=== PATIENT | male | born 1950 ===

== ENCOUNTER 2024-11-28 10:12 | Inpatient (IN) | payer MEDICARE, SELFPAY ==
--- NOTE | 2024-11-15 15:31 | CM ---
Demographics: confirmed
Living situation: lives independently with
Support Person Post Operatively:
History of
VN: Yes, not currently on service
SNF: [facility]
Outpatient: needs appointment
Has patient purchased required equipment: yes
PCP: Manan
Pharmacy: [facility]
Post Operative Discharge Plan: Patient is requesting discharge same day. CM advised patient to discuss with Ortho PA. CM updated ortho PA with patient's wishes.
[2024-11-19 11:12] LABS: Hematocrit 49.4 % (39.0-52.0); Hemoglobin 17.1 g/dL (13.0-18.0); Mean Corp Hgb Conc. 34.6 g/dL (33.0-37.0); Mean Corpuscular Volume 93.7 fL (80.0-94.0); Platelet Count 368 10^3/uL (130-400); Red Cell Dist. Width 12.1 % (11.5-14.5)
[2024-11-19 11:32] LABS: C-Reactive Protein < 5.00 mg/L (0.0-10.00)
[2024-11-19 11:33] LABS: ALT (SGPT) 26 U/L (0-50); AST (SGOT) 22 U/L (17-59); Albumin 4.7 g/dl (3.5-5.0); Alkaline Phosphatase 68 U/L (38-126); Blood Urea Nitrogen 16 mg/dl (9-20); Calcium 11.1 mg/dl (8.4-10.2); Carbon Dioxide 25 mmol/L (22-30); Chloride 103 mmol/L (98-107); Glucose 106 mg/dl (70-99); Potassium 4.4 mmol/L (3.5-5.1); Sodium 139 mmol/L (135-145); Total Protein 7.7 g/dl (6.3-8.2); eGFR > 60.00
[2024-11-19 13:57] LABS: Glycohemoglobin (HgbA1c) 6.1 % (4.0-5.6)
[2024-11-19 14:06] VITALS: BMI 35.7
[2024-11-19 16:43] VITALS: BMI 35.7
[2024-11-28] VITALS (10 sets, daily range): BP systolic 88–141; BP diastolic 62–84; BMI 35.7
[2024-11-28 10:49] LABS: Glucose - Point of Care 106 mg/dl (70-99)
[2024-11-28] MEDS: NORMOSOL-R/PLASMALYTE-A 1000 IV ×2 (11:05→16:22)
[2024-11-28] MEDS: CELEBREX 200 MG PO (11:06)
[2024-11-28] MEDS: TYLENOL 650 MG PO ×4 (11:06→23:15)
--- NOTE | 2024-11-28 11:21 | W.PN.UPDATE ---
Update Note
Progress Note Update
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
- OA s/p R TKA w/ Dr Pool 12/2018
DVT prophylaxis - Eliquis 2.5 mg p.o. BID, b/l venous foot pumps
- Will confirm with patient that he Eliquis Rx already at home
- Holding home baby ASA in lieu of Eliquis to prevent post-op bleeding
- Plasma flow devices HIGHLY encouraged for outpatient use
HTN - + parameters - monitor BP
History of LLE DVT/PE unprovoked, <3yrs; s/p Eliquis course - start Eliquis post-op for DVT prevention
- Early mobility as tolerated
- Venous foot pumps to be worn AT ALL TIMES when immobile while inpatient
GERD - continue PPI therapy
NIDDM - monitor BS
- Add SSI AC, low dose Lantus HS to accommodate for potential post-surgical BS elevations
- Can resume Mounjaro upon d/c
- Minimize steroid use post-op as able
- Cefadroxil for joint prophylaxis upon d/c
HLD
Degenerative disc disease with spinal stenosis
[2024-11-28 12:23] LABS: Glucose - Point of Care 103 mg/dl (70-99)
[2024-11-28 14:56] LABS: Glucose - Point of Care 106 mg/dl (70-99)
[2024-11-28] MEDS: LIPITOR 40 MG PO (16:38)
[2024-11-28] MEDS: PROTONIX 40 MG PO (16:38)
[2024-11-28] MEDS: ZETIA 10 MG PO (16:39)
[2024-11-28] MEDS: LIDOCAINE 4% PATCH 2 PATCH TOPICAL (16:46)
[2024-11-28 16:58] LABS: Glucose - Point of Care 121 mg/dl (70-99)
--- NOTE | 2024-11-28 16:59 | PTCARENOTE ---
1600 pt arrived in bed from PACU. VSS. 98% on 2L O2. mepilex to R knee c/d/i. Oriented to room and call contreras. bed locked and in lowest position. at bedside.
[2024-11-28] MEDS: COLACE 100 MG PO (19:30)
[2024-11-28] MEDS: ELIQUIS 2.5 MG PO (19:30)
[2024-11-28] MEDS: SENOKOT 17.2 MG PO (19:30)
[2024-11-28] MEDS: BACTROBAN 2% OINTMENT 1 APPLIC NASAL (19:30)
[2024-11-28] MEDS: REMOVE LIDOCAINE PATCH 2 PATCH REMOVE (20:00)
[2024-11-28] MEDS: ANCEF 5 IV (20:50)
[2024-11-28 21:15] LABS: Glucose - Point of Care 171 mg/dl (70-99)
[2024-11-28] MEDS: NEURONTIN 300 MG PO (21:15)
[2024-11-28] MEDS: LANTUS 0.05 UNITS SC (21:15)
[2024-11-29 03:00] VITALS: BP 142/95
[2024-11-29] MEDS: TYLENOL 650 MG PO ×2 (03:10→08:45)
[2024-11-29] MEDS: ANCEF 5 IV (05:18)
[2024-11-29 07:06] LABS: Glucose - Point of Care 118 mg/dl (70-99)
[2024-11-29 07:16] VITALS: BP 128/85
[2024-11-29] MEDS: BACTROBAN 2% OINTMENT 1 APPLIC NASAL (08:41)
[2024-11-29] MEDS: ELIQUIS 2.5 MG PO (08:43)
[2024-11-29] MEDS: LIDOCAINE 4% PATCH 2 PATCH TOPICAL (08:43)
[2024-11-29] MEDS: COLACE 100 MG PO (08:43)
[2024-11-29] MEDS: PROTONIX 40 MG PO (08:44)
[2024-11-29] MEDS: LIPITOR 40 MG PO (08:44)
[2024-11-29] MEDS: SENOKOT 17.2 MG PO (08:45)
[2024-11-29] MEDS: ZETIA 10 MG PO (08:45)
[2024-11-29] MEDS: ULTRAM 50 MG PO (09:01)
--- NOTE | 2024-11-29 09:17 | W.PN.ORTHO ---
Today's Communication / Plan
-
Await PT and OT recs.
D/c later today if remaining clinically stable.
Plan is for outpatient PT through [facility]. First appointment is Monday (earliest available). STRESSED home exercises in the meantime.
Assessment
.
Distal Motor Intact: Yes
Dressing:
Clean, dry and intact.
Assessment:
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
- OA s/p R TKA w/ Dr Pool 12/2018
DVT prophylaxis - Eliquis 2.5 mg p.o. BID, b/l venous foot pumps
- Confirmed with the patient that he Eliquis already at home (prescribed by my coworker Esme for 4 weeks post-op)
- Holding home baby ASA in lieu of Eliquis to prevent post-op bleeding
- Plasma flow devices HIGHLY encouraged for outpatient use
HTN - + parameters - BPs overall stable
History of LLE DVT/PE unprovoked, <3yrs; s/p Eliquis course - start Eliquis post-op for DVT prevention
- Early mobility as tolerated
- Venous foot pumps to be worn AT ALL TIMES when immobile while inpatient
GERD - continue PPI therapy
NIDDM - BS readings stable w/ measures below
- Added SSI AC, low dose Lantus HS to accommodate for potential post-surgical BS elevations
- Can resume Mounjaro upon d/c
- Minimize steroid use post-op as able
- Cefadroxil for joint prophylaxis upon d/c
HLD
Degenerative disc disease with spinal stenosis
Plan
.
Surgery / Date: Revision of R TKA w/ Dr Dickens 11/28/2024
DVT Prophylaxis: Other (Eliquis )
Activity:
Out of bed.
PT/OT
Discharge Plan: Home w/ Outpatient PT
Subjective
.
.:
Patient resting comfortably in bed this AM.
R knee pain tolerated w/ minimal pain meds.
Denies any new significant complaints.
Eager for potential d/c today.
Vital Signs and Labs
.
Vital Signs and Labs:
Lab Results
11/19/24 10:11
11/19/24 10:11
Temp Pulse Resp BP Pulse Ox
98.3 F 95 19 128/85 97
11/29/24 07:16 11/29/24 08:44 11/29/24 07:16 11/29/24 08:44 11/29/24 07:16
Non-invasive Hgb result: 15.4
Physical Exam
-
HEENT: No pallor, cyanosis, or jaundice. Throat clear.
NECK: Supple. No JVD.
RESPIRATORY: Lungs clear to auscultation.
CVS: S1, S2 normal. RRR.�
ABDOMEN: Soft, non-tender. No distension. Obese.
EXTREMITIES: Expected post-surgical R knee edema. Strength equal, no calf pain with palpation/dorsiflexion. Calves soft.
RECRUITER: AOx3. No focal deficits. manager recruitment grossly intact
--- NOTE | 2024-11-29 09:30 | W.DS.TRANS ---
DC Summary - Tonal Regulator
-
Discharge Instructions:
Sleep Apnea Risk Intermediate
Discharge Diagnosis/Procedures Mechanical failure of R TKA s/p Revision of R
TKA w/ Dr Dickens 11/28/2024
Diet Diabetic, Carb Controlled
Additional Diets Adequate hydration, minimize opioids, and wear
TEDs stockings to prevent low blood pressure/
dizziness
Activity With Walker,As tolerated
Driving Restrictions Not until seen by your Dr
Bathing Restrictions OK to Shower
Other Services PT
Wound Care Leave dressing on until seen by surgeon's office
for follow-up in 2 weeks.
Instructions:
Stand-Alone Forms: Total Hip/Knee Replacement D/C
Changes to Home Medications: Yes
Discharge Medications:
DC Medications w/original date entered in [employer]
aspirin 81 mg tablet 81 mg PO QPM 11/18/24
Held on 11/29/24. Instructions: Resume on 12/28/24. DO NOT RESUME UNTIL OFF ELIQUIS FOR BLOOD CLOT PREVENTION
atorvastatin 40 mg tablet 40 mg PO DAILY 11/18/24
ezetimibe 10 mg tablet 10 mg PO DAILY 11/18/24
loratadine 10 mg tablet (Claritin) 10 mg PO DAILY PRN Nasal Congestion 11/18/24
mupirocin 2 % topical ointment 1 applic topical BID infection prevention #1 tube 11/18/24
omeprazole 20 mg tablet,delayed release 20 mg PO SUMOTU 11/18/24
tirzepatide 10 mg/0.5 mL subcutaneous pen injector (Mounjaro) 10 mg SC BRANHAM 11/18/24
cefadroxil 500 mg capsule 500 mg PO BID infection prevention #14 caps 11/19/24
dexamethasone 4 mg tablet 4 mg PO BID inflammation #6 tabs 11/19/24
famotidine 20 mg tablet 20 mg PO HS GI prophylaxis #30 tabs 11/19/24
gabapentin 300 mg capsule 300 mg PO HS sleep/pain #10 caps 11/19/24
ondansetron 4 mg disintegrating tablet 4 mg PO Q6H PRN n/v #20 tabs 11/19/24
tramadol 50 mg tablet 50 mg PO Q6H PRN 1 tab moderate pain, 2 if severe #30 tabs 11/19/24
Saccharomyces boulardii 250 mg capsule (Florastor) 250 mg PO BID #14 caps 11/29/24
acetaminophen 650 mg tablet,extended release 1,300 mg (2 x 650 mg) PO Q8H #60 tabs 11/29/24
amlodipine 5 mg tablet 5 mg PO BID #1 tab 11/29/24
apixaban 2.5 mg tablet (Eliquis) 2.5 mg PO BID #60 tabs 11/29/24
docusate sodium 100 mg capsule 100 mg PO BID #30 caps 11/29/24
lidocaine 4 % topical patch 2 patch topical DAILY #30 ea 11/29/24
magnesium hydroxide 400 mg/5 mL oral suspension (Milk of Magnesia) 30 ml PO DAILYPRN PRN constipation #355 mL 11/29/24
peg 400-propylene glycol (PF) 0.4 %-0.3 % eye drops in a dropperette (Systane (PF)) 1 drp ophthalmic (eye) DAILYPRN PRN Dry Eyes #0 ea 11/29/24
sennosides 8.6 mg tablet (Berta-kailee) 17.2 mg (2 x 8.6 mg) PO BID #30 tabs 11/29/24
Home Medication Changes
cefadroxil 500 mg capsule 500 mg PO BID infection prevention #14 caps 11/19/24
dexamethasone 4 mg tablet 4 mg PO BID inflammation #6 tabs 11/19/24
famotidine 20 mg tablet 20 mg PO HS GI prophylaxis #30 tabs 11/19/24
gabapentin 300 mg capsule 300 mg PO HS sleep/pain #10 caps 11/19/24
ondansetron 4 mg disintegrating tablet 4 mg PO Q6H PRN n/v #20 tabs 11/19/24
tramadol 50 mg tablet 50 mg PO Q6H PRN 1 tab moderate pain, 2 if severe #30 tabs 11/19/24
Saccharomyces boulardii 250 mg capsule (Florastor) 250 mg PO BID #14 caps 11/29/24
acetaminophen 650 mg tablet,extended release 1,300 mg (2 x 650 mg) PO Q8H #60 tabs 11/29/24
apixaban 2.5 mg tablet (Eliquis) 2.5 mg PO BID #60 tabs 11/29/24
docusate sodium 100 mg capsule 100 mg PO BID #30 caps 11/29/24
lidocaine 4 % topical patch 2 patch topical DAILY #30 ea 11/29/24
magnesium hydroxide 400 mg/5 mL oral suspension (Milk of Magnesia) 30 ml PO DAILYPRN PRN constipation #355 mL 11/29/24
sennosides 8.6 mg tablet (Berta-kailee) 17.2 mg (2 x 8.6 mg) PO BID #30 tabs 11/29/24
Pending Results: No
[2024-11-29 09:37] VITALS: BP 146/84; PULSE 102; O2SAT 94
[2024-11-29 09:59] VITALS: PULSE 107; O2SAT 96
--- NOTE | 2024-11-29 10:08 | CM ---
CM following re: discharge planning.
Reviewed pt's chart, met with pt.
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
Pt reports he lives with spouse and a daughter in a condo, 2nd floor with elevator, has 2 supportive children. Pt reports he ambulates with a walker and a cane, was at [facility] in the past.
PT and OT evaluations noted - outpatient PT/OT recommended. Pt is aware, expressed his agreement and he stated he has a script for outpatient PT/OT and he will go to [facility] outpatient therapy.
Discharge order noted. Pt is aware, expressed his agreement with discharge. IMM reviewed, placed on chart, pt has a copy.
D/c plan: home with outpatient PT/OT at [facility] and family support. Spouse to transport.
[2024-11-29 11:00] VITALS: BP 116/80
[2024-11-29 11:48] LABS: Glucose - Point of Care 133 mg/dl (70-99)
--- NOTE | 2024-11-29 12:07 | OR.RPT ---
Operative Report
Operative Report
Orthopaedic Surgery Operative Note
DATE OF OPERATION: 11-29-2024
PREOPERATIVE DIAGNOSES: Painful prosthetic right knee; instability
POSTOPERATIVE DIAGNOSES: Same
OPERATION PERFORMED:
Revision left total knee arthroplasty, single component, without allograft.
Polyethylene articular surface exchange.
SURGEON: Jose A Dickens MD
ASSISTANTS: Trenton Ventura PA-C who assisted with patient and limb positioning and retraction
ANESTHESIA: Spinal
COMPLICATIONS: None.
ESTIMATED BLOOD LOSS: 20mL
DRAINS: None
TOURNIQUET TIME: 35 minutes.
IMPLANTS: [place] Tri[employer]lon PS insert, 19mm for 5 femur and 5 tibia.
INDICATIONS: The patient presented to my office with debilitating right knee pain. He had undergone right TKA at an outside hopsital and had an uneventful posteoperative recovery. He had history of left TKA doing well. The right knee had anterior
knee pain, subjective instability, and swelling since the surgery. He did extensive physical therapy. No falls or truama. Infection workup was negative. The right knee had increased laxity on exam in flexion and extension compared to the left.
Findings were concerning for instability of R TKA. We discussed treatment options including continued nonoperative treatment. We discussed upsizing the polyethylene component or revising one or both of the metal components.
We reviewed the natural history of this problem, as well as the risks, benefits, and alternatives of various treatment options. The patient exhausted all nonoperative treatment options and wished to proceed with knee replacement surgery. The patient
understood the risks which included, but were not limited to, bleeding, infection, failure to relieve pain, more pain than preop, damage to blood vessels and nerves, need for reoperation, mechanical failure of the implants, wound healing problems,
stiffness, instability, blood clot, pulmonary embolism, myocardial infarction, pneumonia, arrhythmia, CVA, and . The patient accepted these risks and wished to proceed. All questions were answered, and informed consent was obtained.
PROCEDURE IN DETAIL: The patient was identified in the preoperative holding area. The right knee was identified as the operative site. The patient was taken in the operating room and placed in a supine position on the operating table. Spinal
anesthesia was performed. IV antibiotics and tranexamic acid were administered. A bump was placed under the hemipelvis. A well-padded tourniquet was placed on the proximal thigh. All bony prominences were well padded. The right lower extremity was
prepped and draped in the usual sterile fashion.
We performed a surgical time-out. An interarticular block was performed with 20mL of 0.25% bupivacaine with epinephrine. The limb was exsanguinated with an Esmarch bandage, then the tourniquet was inflated to 250 mmHg. The prior anterior midline
scar was excised. Dissection was carried down to the extensor mechanism. A medial parapatellar arthrotomy was performed. A synnovetomy was performed in suprapatellar pouch and medial and lateral gutters with care not to damage extensor mechanism or
collateral ligaments. A subperiosteal peel was performed on the medial tibia. I excised scar tissue between the patella tendon and the anterior tibia to enhance exposure. The knee was flexed. The patella was not everted - it was subluxated
laterally.
The femoral and tibia components were inspected. A bone tamp was used to determine the components were well fixed. The metal surface of the tibia and femur appeared intact without wear or corrosion. The polyethylene liner was removed. No surface or
backside wear. The tibial edges had some spurring. This was removed latearlly. Findings could indicate slight subsidence of the tibial component after implantation.
Trial spacers were inserted including size 16 and size 19. The knee was taken through a range of motion. It was balanced in flexion and extension, still a bit loose with the 16mm. The size 19 was stable throughout a range of motion. The 19mm insert
was selected and impacted into place and engaged the locking mechansim. The tourniquet was let down and meticulous hemostasis was achieved.
The arthrotomy was closed with 0-PDS. Once closed, an interarticular block was performed with 0.25% bupivocaine with epi. The deep dermal layer was closed with 2-0 PDS, and the subcuticular skin was closed with 3-0 monocryl. A skin glue dressing was
applied to the skin in full flexion. Once this was completely dry, a sterile waterproof dressing was applied.
The anesthesia team performed an adductor canal block in the OR. The patient awoke from anesthesia without any difficulties. The sponge and instrument counts were correct x2 at the end of the case. I was present and participated in the entire case.
Mack Dickens MD
== END 2024-11-29 13:21 | disposition home or self-care (01) | DRG 489 ==
LOC: 2 SOUTH 10:12
PROVIDERS: ADMITTING PHYSICIAN Orthopaedic Surgery; FAMILY PHYSICIAN Family Medicine
PROC: 0SPC09Z Removal of Liner from Right Knee Joint, Open Approach (ICD-10-PCS; 2024-11-29)
PROC: 0SUV09Z Supplement Right Knee Joint, Tibial Surface with Liner, Open Approach (ICD-10-PCS; 2024-11-29)
DX: T84.092A Other mechanical complication of internal right knee prosthesis, initial encounter (principal); Y79.2 Prosthetic and other implants, materials and accessory orthopedic devices associated with adverse incidents; Z79.01 Long term (current) use of anticoagulants; Z86.711 Personal history of pulmonary embolism; Z86.718 Personal history of other venous thrombosis and embolism; I10 Essential (primary) hypertension; E11.9 Type 2 diabetes mellitus without complications; E78.5 Hyperlipidemia, unspecified; K21.9 Gastro-esophageal reflux disease without esophagitis; M25.361 Other instability, right knee; M48.00 Spinal stenosis, site unspecified; Z82.49 Family history of ischemic heart disease and other diseases of the circulatory system; Z96.611 Presence of right artificial shoulder joint; Z96.653 Presence of artificial knee joint, bilateral; M25.561 Pain in right knee
CPT/HCPCS: 36415; 73560; 80053; 82962; 83036; 85027; 85652; 86140; 86850; 86900; 86901; 87070; 93005; 97110; 97162; 97166; 97530